=== PATIENT | female | born 1970 | race Caucasian/White ===

== ENCOUNTER → 2018-03-18 | Emergency (ER) | payer MEDICARE, MEDICAID ==
[~2018-03-18] VITALS: Ht 167.6 cm; Wt 104.0 kg
[~2018-03-18] MED LIST: CETI-102 PO; CHOL10002 PO; CYA500T PO; DESM0.1T PO; DICY10CA88 PO; FLUT16SP2 BOTHNARES; GABA-534 PO; HYDROmorphone 1 mg/ml syringe IV PRN; HYDROmorphone inj. 0.5 MG/0.5 ML DISP.SYRIN IV PRN; INSU100I25 SQ; LORA1TAB PO; LORazepam 2 mg/ml vial IV ONE; LURA80TA3 PO; MIRT15TA8 PO; OMEP20TA5 PO; OXYB5TAB11 PO; OXYC-134 PO; ROPI1TAB4 PO; VENL225T3 PO; diphenhydrAMINE 50 mg/ml inj IV ONE; fish oil PO; metoclopramide 5 mg/ml inj IV ONE; normal saline 1000ML IV soln IVB ONE; oxyCODONE/APAP 10/325mg tablet PO ONE
[2018-03-18 12:09] LABS: BASOPHILS % (AUTO) 0.3 % (0-1); EOSINOPHILS # (AUTO) 0.2 X10'3 (0-0.9); HEMATOCRIT 31.1 % (35.0-45.0); HEMOGLOBIN 10.2 g/dl (12.0-16.0); LYMPHOCYTES # (AUTO) 2.1 X10'3 (1.1-4.8); LYMPHOCYTES % (AUTO) 18.8 % (21-51); MEAN CORPUSCULAR HEMOGLOBIN 25.4 PG (27.0-31.0); MEAN CORPUSCULAR HGB CONC 32.8 % (33.0-36.5); MEAN CORPUSCULAR VOLUME 77.5 FL (78-98); MEAN PLATELET VOLUME 8.7 FL (7.4-10.4); MONOCYTES % (AUTO) 9.3 % (2-12); NEUTROPHILS # (AUTO) 7.8 X10'3 (1.8-7.7); NEUTROPHILS % (AUTO) 69.6 % (42-75); PLATELET COUNT 272 X10'3 (140-440); RED BLOOD COUNT 4.01 X10'6 (4.20-5.60); RED CELL DISTRIBUTION WIDTH 16.1 % (11.5-14.5); WHITE BLOOD COUNT 11.1 X10'3 (4.5-11.0)
[2018-03-18 12:23] LABS: ALANINE AMINOTRANSFERASE 30 U/L (12-78); ALBUMIN 3.2 G/DL (3.4-5.0); ALBUMIN/GLOBULIN RATIO 0.7 (1.1-1.5); ALKALINE PHOSPHATASE 92 IU/L (46-116); ANION GAP 7 (8-16); ASPARTATE AMINO TRANSFERASE 30 U/L (10-37); BILIRUBIN,TOTAL 0.3 MG/DL (0.1-1.0); BLOOD UREA NITROGEN 9 MG/DL (7-18); BUN/CREATININE RATIO 11.1 (6.6-38.0); CALCIUM 8.5 MG/DL (8.5-10.1); CHLORIDE 98 MMOL/L (99-107); CREATININE 0.81 MG/DL (0.40-0.90); GLUCOSE 156 MG/DL (70-104); LIPASE 143 U/L (73-393); POTASSIUM 4.1 MMOL/L (3.5-5.1); SODIUM 133 MMOL/L (135-145); TOTAL CARBON DIOXIDE 28.5 MMOL/L (24-32); TOTAL PROTEIN 7.7 G/DL (6.4-8.2); eGFR 76 ML/MIN
[2018-03-18 13:45] VITALS: BP 152/78
[2018-03-18 13:52] LABS: CLARITY,URINE CLOUDY (Clear); COLOR,URINE YELLOW (Yellow); GLUCOSE, URINE NEGATIVE (Neg); KETONES,URINE NEGATIVE (Neg); LEUKOCYTE ESTERASE ,URINE SMALL (Neg); NITRITES, URINE POSITIVE (Neg); OCCULT BLOOD,URINE NEGATIVE (Neg); PROTEIN,URINE NEGATIVE (Neg); UROBILINOGEN,URINE 0.2 E.U/dL (0.2-1.0)
[2018-03-18 13:57] LABS: UA COLLECTION TYPE STRAIGHT CATH
[2018-03-18 13:59] LABS: BACTERIA,URINE 4+ /HPF (Neg); MUCUS STRANDS FEW /LPF (Neg); RBC,URINE 0-2 /HPF (0-2); SQUAMOUS EPITHELIAL CELL,UR FEW /LPF (FEW); WBC,URINE 30-50 /HPF (0-4)
== END | disposition home or self-care (01) ==
LOC: ER 11:15
DX: R10.84 Generalized abdominal pain (principal); E11.9 Type 2 diabetes mellitus without complications; G89.29 Other chronic pain; Z79.899 Other long term (current) drug therapy; Z79.4 Long term (current) use of insulin; Z85.810 Personal history of malignant neoplasm of tongue
CPT/HCPCS: 36415; 74176; 80053; 81001; 83690; 85025; 87077; 87088; 87186; 96374; 96375; 99285; J1170; J1200; J2060; J2765; P9612

== ENCOUNTER 2018-05-02 14:27 | Inpatient (IN) | payer MEDICARE, MEDICAID ==
[~2018-05-02] VITALS: Ht 167.6 cm; Wt 95.4 kg
[~2018-05-02 14:27] MED LIST changes: -HYDROmorphone 1 mg/ml syringe IV PRN; -HYDROmorphone inj. 0.5 MG/0.5 ML DISP.SYRIN IV PRN; -LORazepam 2 mg/ml vial IV ONE; -diphenhydrAMINE 50 mg/ml inj IV ONE; -metoclopramide 5 mg/ml inj IV ONE; -normal saline 1000ML IV soln IVB ONE; -oxyCODONE/APAP 10/325mg tablet PO ONE
[2018-05-02] MEDS ORDERED: vancomycin/NS 1 GM ADD-VANTAGE 250 ML IV ONE (15:05)
[2018-05-02] MEDS ORDERED: piperacillin/tazo 3.375gm/50ml 50 ML IV ONE (15:05)
[2018-05-02 15:34] LABS: BASOPHILS % (AUTO) 0.3 % (0-1); EOSINOPHILS % (AUTO) 0.5 % (0-6); HEMATOCRIT 24.8 % (35.0-45.0); HEMOGLOBIN 8.2 g/dl (12.0-16.0); LYMPHOCYTES # (AUTO) 0.3 X10'3 (1.1-4.8); LYMPHOCYTES % (AUTO) 23.4 % (21-51); MEAN CORPUSCULAR HEMOGLOBIN 26.7 PG (27.0-31.0); MEAN CORPUSCULAR HGB CONC 33.1 % (33.0-36.5); MEAN CORPUSCULAR VOLUME 80.5 FL (78-98); MEAN PLATELET VOLUME 8.2 FL (7.4-10.4); MONOCYTES # (AUTO) 0.2 X10'3 (0-0.9); NEUTROPHILS # (AUTO) 0.8 X10'3 (1.8-7.7); NEUTROPHILS % (AUTO) 59.8 % (42-75); PLATELET COUNT 202 X10'3 (140-440); RED BLOOD COUNT 3.08 X10'6 (4.20-5.60); RED CELL DISTRIBUTION WIDTH 25.6 % (11.5-14.5); WHITE BLOOD COUNT 1.4 X10'3 (4.5-11.0)
[2018-05-02 15:47] LABS: INR 1.2 INR; PARTIAL THROMBOPLASTIN TIME 23 SECONDS (22-32); PROTHROMBIN TIME 12.3 SECONDS (9.0-12.0)
[2018-05-02 15:48] LABS: ALANINE AMINOTRANSFERASE 18 U/L (12-78); ALBUMIN 2.7 G/DL (3.4-5.0); ALBUMIN/GLOBULIN RATIO 0.5 (1.1-1.5); ALKALINE PHOSPHATASE 72 IU/L (46-116); ANION GAP 13 (8-16); ASPARTATE AMINO TRANSFERASE 18 U/L (10-37); BILIRUBIN,TOTAL 0.3 MG/DL (0.1-1.0); BLOOD UREA NITROGEN 15 MG/DL (7-18); CALCIUM 9.1 MG/DL (8.5-10.1); CHLORIDE 93 MMOL/L (99-107); CREATININE 1.15 MG/DL (0.40-0.90); GLUCOSE 129 MG/DL (70-104); MAGNESIUM 1.3 MG/DL (1.5-2.4); POTASSIUM 3.3 MMOL/L (3.5-5.1); SODIUM 131 MMOL/L (135-145); TOTAL CARBON DIOXIDE 25.3 MMOL/L (24-32); eGFR 51 ML/MIN
[2018-05-02 15:49] LABS: ANISOCYTOSIS 3+; PLATELET ESTIMATE NORMAL; TOTAL CELLS COUNTED 100
[2018-05-02 15:50] LABS: LARGE PLATELETS FEW; TOXIC GRANULATION 2+
[2018-05-02 15:52] LABS: MICROCYTOSIS 1+
[2018-05-02] MEDS ORDERED: iohexol 300mg/ml 100ml inj. ONE (15:53)
[2018-05-02] MEDS: TBO-filgrastim 480 MCG/0.8ml syringe SQ ONE ×2 (16:05→18:56)
[2018-05-02] MEDS ORDERED: ondansetron/PF 4mg/2ml inj IV PRN (16:45)
[2018-05-02] MEDS ORDERED: acetaminophen 325mg tablet PO PRN (16:45)
[2018-05-02] MEDS ORDERED: morphine 2 MG/ML inj. syringe IV PRN (16:45)
[2018-05-02] MEDS ORDERED: mag hydrox/Alum hydrox/simeth 30ml oral suspension PO PRN (16:45)
[2018-05-02] MEDS ORDERED: heparin sodium, porcine/PF 100unit/ml 5ML syringe IV ONE ×2 (17:05→18:20)
[2018-05-02] MEDS: vancomycin inj 1,250 MG in normal saline 250ml IV soln 250 ML IV SCH (18:00)
[2018-05-02] MEDS ORDERED: ondansetron/PF 4mg/2ml inj IV ONE (18:00)
[2018-05-02 18:42] LABS: CLARITY,URINE CLOUDY (Clear); COLOR,URINE STRAW (Yellow); GLUCOSE, URINE NEGATIVE (Neg); KETONES,URINE 15 mg/dl (Neg); LEUKOCYTE ESTERASE ,URINE NEGATIVE (Neg); NITRITES, URINE POSITIVE (Neg); OCCULT BLOOD,URINE NEGATIVE (Neg); PROTEIN,URINE NEGATIVE (Neg); UROBILINOGEN,URINE 0.2 E.U/dL (0.2-1.0)
[2018-05-02 18:47] LABS: UA COLLECTION TYPE CLN CATCH MIDSTREAM
[2018-05-02] MEDS: normal saline 1000ml 1,000 ML IV SCH (18:47)
[2018-05-02 18:48] LABS: SQUAMOUS EPITHELIAL CELL,UR MANY /LPF (FEW)
[2018-05-02 18:50] LABS: BACTERIA,URINE 4+ /HPF (Neg); MUCUS STRANDS NONE SEEN /LPF (Neg); RBC,URINE 0-2 /HPF (0-2)
[2018-05-02] MEDS: morphine 2 MG/ML inj. syringe IV PRN ×2 (18:53→22:46)
[2018-05-02 21:15] VITALS: BP 142/75
[2018-05-03] VITALS: BP 127/74
[2018-05-03] MEDS ORDERED: heparin sodium, porcine/PF 100unit/ml 5ML syringe IV SCH ×2
[2018-05-03] MEDS: normal saline 1000ml 1,000 ML IV SCH ×3 (03:39→15:07)
[2018-05-03] MEDS: vancomycin inj 1,250 MG in normal saline 250ml IV soln 250 ML IV SCH ×2 (05:31→18:01)
[2018-05-03 05:38] LABS: BASOPHILS % (AUTO) 0.4 % (0-1); EOSINOPHILS % (AUTO) 0.4 % (0-6); HEMOGLOBIN 7.7 g/dl (12.0-16.0); LYMPHOCYTES # (AUTO) 0.4 X10'3 (1.1-4.8); LYMPHOCYTES % (AUTO) 17.7 % (21-51); MEAN CORPUSCULAR HEMOGLOBIN 26.3 PG (27.0-31.0); MEAN CORPUSCULAR HGB CONC 32.1 % (33.0-36.5); MEAN CORPUSCULAR VOLUME 81.8 FL (78-98); MEAN PLATELET VOLUME 8.3 FL (7.4-10.4); MONOCYTES # (AUTO) 0.3 X10'3 (0-0.9); MONOCYTES % (AUTO) 16.3 % (2-12); NEUTROPHILS # (AUTO) 1.3 X10'3 (1.8-7.7); NEUTROPHILS % (AUTO) 65.2 % (42-75); PLATELET COUNT 191 X10'3 (140-440); RED BLOOD COUNT 2.94 X10'6 (4.20-5.60)
[2018-05-03 05:47] LABS: ALBUMIN 2.4 G/DL (3.4-5.0); ANION GAP 11 (8-16); BLOOD UREA NITROGEN 11 MG/DL (7-18); BUN/CREATININE RATIO 10.1 (6.6-38.0); CALCIUM 8.6 MG/DL (8.5-10.1); CHLORIDE 100 MMOL/L (99-107); CREATININE 1.09 MG/DL (0.40-0.90); GLUCOSE 112 MG/DL (70-104); POTASSIUM 3.4 MMOL/L (3.5-5.1); SODIUM 138 MMOL/L (135-145); TOTAL CARBON DIOXIDE 27.4 MMOL/L (24-32); eGFR 54 ML/MIN
[2018-05-03 06:51] LABS: ANISOCYTOSIS 3+; PLATELET ESTIMATE NORMAL; TOTAL CELLS COUNTED 100
[2018-05-03 06:52] LABS: TOXIC GRANULATION 3+
[2018-05-03 07:00] VITALS: BP 122/85
[2018-05-03] MEDS: morphine 2 MG/ML inj. syringe IV PRN ×3 (07:11→19:08)
[2018-05-03] MEDS: enoxaparin 40mg/0.4ml syringe SUBCUT SCH (07:11)
[2018-05-03] MEDS ORDERED: magnesium 2GM in 50ml NS 50 ML IV PRN (10:55)
[2018-05-03] MEDS ORDERED: magnesium 4gm in 100ml NS 100 ML IV PRN ×2 (10:55→16:00)
[2018-05-03] MEDS ORDERED: potassium Cl 20 mEq SR tablet PO PRN (10:55)
[2018-05-03] MEDS ORDERED: potassium Cl 40MEQ/NS 500ml 500 ML IV PRN ×2 (10:55)
[2018-05-03] MEDS: magnesium Cl slow-release 64mg tablet PO PRN (11:48)
[2018-05-03] MEDS: potassium Cl 20 mEq SR tablet PO PRN (11:48)
[2018-05-03 12:06] VITALS: BP_SYST 105; BP_SYST 149; BP_DIAS 55; BP_DIAS 56
[2018-05-03] MEDS ORDERED: PER5325T PO (14:05)
[2018-05-03] MEDS ORDERED: magnesium Cl slow-release 64mg tablet PO PRN (16:00)
[2018-05-03] MEDS ORDERED: magnesium 2 GM in 50ml IV PRN (16:05)
[2018-05-03 20:00] VITALS: BP 139/61
[2018-05-03] MEDS ORDERED: Dextrose 10%-water IV solution 1,000 ML IV PRN (20:00)
[2018-05-03 20:26] LABS: ALANINE AMINOTRANSFERASE 18 U/L (12-78); ALBUMIN 2.2 G/DL (3.4-5.0); ALBUMIN/GLOBULIN RATIO 0.5 (1.1-1.5); ALKALINE PHOSPHATASE 60 IU/L (46-116); ANION GAP 9 (8-16); ASPARTATE AMINO TRANSFERASE 15 U/L (10-37); BILIRUBIN,TOTAL 0.3 MG/DL (0.1-1.0); BLOOD UREA NITROGEN 12 MG/DL (7-18); BUN/CREATININE RATIO 12.9 (6.6-38.0); CALCIUM 8.3 MG/DL (8.5-10.1); CHLORIDE 105 MMOL/L (99-107); CREATININE 0.93 MG/DL (0.40-0.90); GLUCOSE 90 MG/DL (70-104); MAGNESIUM 1.5 MG/DL (1.5-2.4); PHOSPHORUS 2.5 MG/DL (2.3-4.5); POTASSIUM 3.6 MMOL/L (3.5-5.1); PREALBUMIN 10.7 MG/DL (19-36); SODIUM 140 MMOL/L (135-145); TOTAL CARBON DIOXIDE 26.1 MMOL/L (24-32); TOTAL PROTEIN 6.6 G/DL (6.4-8.2); TRIGLYCERIDES 128 MG/DL (20-135); eGFR 65 ML/MIN
[2018-05-03] MEDS: oxybutynin 5mg tablet PO SCH (20:46)
[2018-05-03] MEDS: mirtazapine 15mg tablet PO SCH (20:46)
[2018-05-03] MEDS: LORazepam 1 MG tablet PO SCH (20:46)
[2018-05-03] MEDS: fat emulsion IV 100 ML, MVI, adult No.4 with vit. K 10 ML, Trace element-5 inj. 1 ML in... IV SCH ×4 (20:46)
[2018-05-03] MEDS: nystatin 500,000 unit/5ML UD oral suspension PO SCH (20:46)
[2018-05-03] MEDS: lurasidone 20mg tablet PO SCH (20:47)
[2018-05-03] MEDS: ROPINIRole 1mg tablet PO SCH (21:00)
[2018-05-04] VITALS: BP 130/65
[2018-05-04] MEDS: morphine 2 MG/ML inj. syringe IV PRN ×5 (00:02→20:47)
[2018-05-04] MEDS: vancomycin inj 1,250 MG in normal saline 250ml IV soln 250 ML IV SCH ×2 (05:14→21:58)
[2018-05-04 05:22] LABS: BASOPHILS % (AUTO) 0.3 % (0-1); EOSINOPHILS % (AUTO) 0.4 % (0-6); HEMATOCRIT 22.3 % (35.0-45.0); HEMOGLOBIN 7.3 g/dl (12.0-16.0); LYMPHOCYTES # (AUTO) 0.4 X10'3 (1.1-4.8); LYMPHOCYTES % (AUTO) 13.6 % (21-51); MEAN CORPUSCULAR HEMOGLOBIN 26.8 PG (27.0-31.0); MEAN CORPUSCULAR HGB CONC 32.8 % (33.0-36.5); MEAN CORPUSCULAR VOLUME 81.7 FL (78-98); MEAN PLATELET VOLUME 8.1 FL (7.4-10.4); MONOCYTES # (AUTO) 0.3 X10'3 (0-0.9); MONOCYTES % (AUTO) 9.7 % (2-12); PLATELET COUNT 206 X10'3 (140-440); RED BLOOD COUNT 2.73 X10'6 (4.20-5.60); RED CELL DISTRIBUTION WIDTH 26.1 % (11.5-14.5); WHITE BLOOD COUNT 2.6 X10'3 (4.5-11.0)
[2018-05-04] MEDS ORDERED: VANCOMYCIN LEVEL IV ONE (05:30)
[2018-05-04 05:33] LABS: ALANINE AMINOTRANSFERASE 15 U/L (12-78); ALBUMIN 2.2 G/DL (3.4-5.0); ALBUMIN/GLOBULIN RATIO 0.5 (1.1-1.5); ALKALINE PHOSPHATASE 58 IU/L (46-116); ANION GAP 10 (8-16); ASPARTATE AMINO TRANSFERASE 15 U/L (10-37); BILIRUBIN,TOTAL 0.2 MG/DL (0.1-1.0); BLOOD UREA NITROGEN 10 MG/DL (7-18); BUN/CREATININE RATIO 10.9 (6.6-38.0); CALCIUM 8.4 MG/DL (8.5-10.1); CHLORIDE 104 MMOL/L (99-107); CREATININE 0.92 MG/DL (0.40-0.90); GLUCOSE 133 MG/DL (70-104); POTASSIUM 3.6 MMOL/L (3.5-5.1); SODIUM 139 MMOL/L (135-145); TOTAL CARBON DIOXIDE 25.3 MMOL/L (24-32); TOTAL PROTEIN 6.7 G/DL (6.4-8.2); eGFR 66 ML/MIN
[2018-05-04 05:34] LABS: MAGNESIUM 1.4 MG/DL (1.5-2.4); PHOSPHORUS 2.6 MG/DL (2.3-4.5); VANCOMYCIN,TROUGH 19.9 UG/ML (6.0-14.0)
[2018-05-04 06:08] LABS: NUCLEATED RED BLOOD CELLS 1 /100WBC (0-0); TOTAL CELLS COUNTED 100
[2018-05-04 06:10] LABS: ANISOCYTOSIS 3+; HYPOCHROMASIA 1+; PLATELET ESTIMATE NORMAL
[2018-05-04 06:11] LABS: TOXIC GRANULATION 3+
[2018-05-04 07:36] VITALS: BP 129/80
[2018-05-04] MEDS ORDERED: Insulin Detemir pen SQ SCH (08:00)
[2018-05-04] MEDS ORDERED: insulin glargine (Lantus) pen - multi-dose SQ SCH (08:00)
[2018-05-04] MEDS: normal saline 1000ml 1,000 ML IV SCH ×2 (08:43→17:31)
[2018-05-04] MEDS: LORazepam 1 MG tablet PO SCH ×3 (08:59→21:59)
[2018-05-04] MEDS: oxybutynin 5mg tablet PO SCH ×2 (08:59→20:46)
[2018-05-04] MEDS: venlafaxine XR 75mg capsule (Q24H) PO SCH (08:59)
[2018-05-04] MEDS: nystatin 500,000 unit/5ML UD oral suspension PO SCH ×3 (09:00→21:59)
[2018-05-04] MEDS: cetirizine 10mg tablet PO SCH (09:00)
[2018-05-04] MEDS: enoxaparin 40mg/0.4ml syringe SUBCUT SCH (09:01)
[2018-05-04] MEDS: pantoprazole 40mg Tablet.DR PO SCH (09:01)
[2018-05-04] MEDS: fluticasone nasal spray 16GM bottle NS SCH (09:02)
[2018-05-04] MEDS: magnesium Cl slow-release 64mg tablet PO PRN (09:22)
[2018-05-04] MEDS ORDERED: magnesium hydroxide 30ml (MOM) UD suspension PO PRN (10:50)
[2018-05-04 12:10] VITALS: BP 149/45
[2018-05-04 15:52] VITALS: BP 142/88
[2018-05-04 20:00] VITALS: BP 157/94
[2018-05-04] MEDS: insulin glargine (Lantus) pen - multi-dose SQ SCH (20:46)
[2018-05-04] MEDS: lurasidone 20mg tablet PO SCH (21:59)
[2018-05-04] MEDS: ROPINIRole 1mg tablet PO SCH (21:59)
[2018-05-04] MEDS: mirtazapine 15mg tablet PO SCH (22:01)
[2018-05-04 23:30] VITALS: BP 147/83
[2018-05-05] MEDS: fat emulsion IV 100 ML, MVI, adult No.4 with vit. K 10 ML, Trace element-5 inj. 1 ML in... IV SCH ×4 (02:31)
[2018-05-05] MEDS: morphine 2 MG/ML inj. syringe IV PRN ×2 (02:34→11:42)
[2018-05-05] MEDS: normal saline 1000ml 1,000 ML IV SCH (04:43)
[2018-05-05 05:28] LABS: BASOPHILS % (AUTO) 0.5 % (0-1); EOSINOPHILS % (AUTO) 0.3 % (0-6); HEMATOCRIT 22.5 % (35.0-45.0); HEMOGLOBIN 7.4 g/dl (12.0-16.0); LYMPHOCYTES # (AUTO) 0.3 X10'3 (1.1-4.8); MEAN CORPUSCULAR HEMOGLOBIN 26.7 PG (27.0-31.0); MEAN CORPUSCULAR HGB CONC 32.7 % (33.0-36.5); MEAN CORPUSCULAR VOLUME 81.7 FL (78-98); MEAN PLATELET VOLUME 8.2 FL (7.4-10.4); MONOCYTES # (AUTO) 0.2 X10'3 (0-0.9); MONOCYTES % (AUTO) 10.8 % (2-12); NEUTROPHILS # (AUTO) 1.4 X10'3 (1.8-7.7); NEUTROPHILS % (AUTO) 71.4 % (42-75); PLATELET COUNT 229 X10'3 (140-440); RED BLOOD COUNT 2.75 X10'6 (4.20-5.60); RED CELL DISTRIBUTION WIDTH 25.7 % (11.5-14.5)
[2018-05-05 05:55] LABS: ALANINE AMINOTRANSFERASE 13 U/L (12-78); ALBUMIN 2.2 G/DL (3.4-5.0); ALBUMIN/GLOBULIN RATIO 0.5 (1.1-1.5); ALKALINE PHOSPHATASE 57 IU/L (46-116); ANION GAP 10 (8-16); ASPARTATE AMINO TRANSFERASE 15 U/L (10-37); BILIRUBIN,TOTAL 0.1 MG/DL (0.1-1.0); BLOOD UREA NITROGEN 12 MG/DL (7-18); CALCIUM 8.5 MG/DL (8.5-10.1); CHLORIDE 102 MMOL/L (99-107); CREATININE 0.92 MG/DL (0.40-0.90); GLUCOSE 144 MG/DL (70-104); MAGNESIUM 1.3 MG/DL (1.5-2.4); PHOSPHORUS 3.3 MG/DL (2.3-4.5); POTASSIUM 3.3 MMOL/L (3.5-5.1); PREALBUMIN 11.8 MG/DL (19-36); SODIUM 139 MMOL/L (135-145); TOTAL CARBON DIOXIDE 27.5 MMOL/L (24-32); TOTAL PROTEIN 6.8 G/DL (6.4-8.2); TRIGLYCERIDES 227 MG/DL (20-135); eGFR 66 ML/MIN
[2018-05-05] MEDS: vancomycin inj 1,250 MG in normal saline 250ml IV soln 250 ML IV SCH (06:02)
[2018-05-05 07:43] LABS: TOTAL CELLS COUNTED 100
[2018-05-05 07:44] LABS: ANISOCYTOSIS 3+; HYPOCHROMASIA 1+; PLATELET ESTIMATE NORMAL; TOXIC GRANULATION 3+
[2018-05-05 08:06] VITALS: BP 140/73
[2018-05-05] MEDS: pantoprazole 40mg Tablet.DR PO SCH (08:53)
[2018-05-05] MEDS: LORazepam 1 MG tablet PO SCH ×3 (08:54→20:51)
[2018-05-05] MEDS: fluticasone nasal spray 16GM bottle NS SCH (08:54)
[2018-05-05] MEDS: oxybutynin 5mg tablet PO SCH ×2 (08:55→20:52)
[2018-05-05] MEDS: venlafaxine XR 75mg capsule (Q24H) PO SCH (08:55)
[2018-05-05] MEDS: cetirizine 10mg tablet PO SCH (08:56)
[2018-05-05] MEDS: nystatin 500,000 unit/5ML UD oral suspension PO SCH ×3 (08:56→20:52)
[2018-05-05] MEDS: enoxaparin 40mg/0.4ml syringe SUBCUT SCH (08:57)
[2018-05-05] MEDS: potassium Cl 20 mEq SR tablet PO PRN ×3 (08:58→20:52)
[2018-05-05] MEDS: magnesium Cl slow-release 64mg tablet PO PRN ×2 (08:59→20:53)
[2018-05-05 11:00] VITALS: BP 143/83
[2018-05-05 13:40] VITALS: BP 142/85
[2018-05-05 15:57] VITALS: BP 154/87
[2018-05-05 18:00] VITALS: BP 122/40
[2018-05-05] MEDS: lurasidone 20mg tablet PO SCH (20:52)
[2018-05-05] MEDS: ROPINIRole 1mg tablet PO SCH (20:52)
[2018-05-05] MEDS: mirtazapine 15mg tablet PO SCH (20:52)
[2018-05-05] MEDS: insulin glargine (Lantus) pen - multi-dose SQ SCH (21:56)
[2018-05-05] MEDS: oxyCODONE/APAP 5-325mg tablet PO PRN (22:00)
[2018-05-06] VITALS: BP 129/78
[2018-05-06] MEDS: fat emulsion IV 100 ML, MVI, adult No.4 with vit. K 10 ML, Trace element-5 inj. 1 ML in... IV SCH ×8 (00:59→19:32)
[2018-05-06 06:11] LABS: BASOPHILS % (AUTO) 0.2 % (0-1); EOSINOPHILS % (AUTO) 1.2 % (0-6); HEMOGLOBIN 7.5 g/dl (12.0-16.0); LYMPHOCYTES # (AUTO) 0.4 X10'3 (1.1-4.8); LYMPHOCYTES % (AUTO) 20.7 % (21-51); MEAN CORPUSCULAR HEMOGLOBIN 26.6 PG (27.0-31.0); MEAN CORPUSCULAR HGB CONC 32.5 % (33.0-36.5); MEAN CORPUSCULAR VOLUME 81.8 FL (78-98); MEAN PLATELET VOLUME 8.2 FL (7.4-10.4); MONOCYTES # (AUTO) 0.3 X10'3 (0-0.9); MONOCYTES % (AUTO) 16.3 % (2-12); NEUTROPHILS # (AUTO) 1.2 X10'3 (1.8-7.7); NEUTROPHILS % (AUTO) 61.6 % (42-75); PLATELET COUNT 218 X10'3 (140-440); RED BLOOD COUNT 2.82 X10'6 (4.20-5.60); RED CELL DISTRIBUTION WIDTH 27.8 % (11.5-14.5)
[2018-05-06 06:13] LABS: ALBUMIN 2.4 G/DL (3.4-5.0); ANION GAP 7 (8-16); BLOOD UREA NITROGEN 15 MG/DL (7-18); BUN/CREATININE RATIO 16.5 (6.6-38.0); CHLORIDE 102 MMOL/L (99-107); CREATININE 0.91 MG/DL (0.40-0.90); GLUCOSE 128 MG/DL (70-104); MAGNESIUM 1.5 MG/DL (1.5-2.4); POTASSIUM 3.8 MMOL/L (3.5-5.1); SODIUM 137 MMOL/L (135-145); TOTAL CARBON DIOXIDE 28.4 MMOL/L (24-32); eGFR 67 ML/MIN
[2018-05-06 07:00] VITALS: BP 151/79
[2018-05-06 07:53] LABS: HYPOCHROMASIA 1+; PLATELET ESTIMATE NORMAL; POLYCHROMASIA 1+; TOTAL CELLS COUNTED 100; TOXIC GRANULATION 3+
[2018-05-06 07:54] LABS: ANISOCYTOSIS 3+
[2018-05-06] MEDS: LORazepam 1 MG tablet PO SCH ×3 (08:18→21:32)
[2018-05-06] MEDS: oxybutynin 5mg tablet PO SCH ×2 (08:18→19:31)
[2018-05-06] MEDS: cetirizine 10mg tablet PO SCH (08:18)
[2018-05-06] MEDS: pantoprazole 40mg Tablet.DR PO SCH (08:18)
[2018-05-06] MEDS: nystatin 500,000 unit/5ML UD oral suspension PO SCH ×3 (08:19→21:32)
[2018-05-06] MEDS: venlafaxine XR 75mg capsule (Q24H) PO SCH (08:19)
[2018-05-06] MEDS: enoxaparin 40mg/0.4ml syringe SUBCUT SCH (08:19)
[2018-05-06] MEDS: levoFLOXACIN-Levaquin 500mg/D5 100 ML IV SCH (08:20)
[2018-05-06] MEDS: fluticasone nasal spray 16GM bottle NS SCH (08:20)
[2018-05-06] MEDS: oxyCODONE/APAP 5-325mg tablet PO PRN ×2 (08:23→19:32)
[2018-05-06] MEDS: magnesium hydroxide 30ml (MOM) UD suspension PO PRN (08:24)
[2018-05-06] MEDS: insulin glargine (Lantus) pen - multi-dose SQ SCH (08:52)
[2018-05-06 18:00] VITALS: BP 153/108
[2018-05-06] MEDS: mirtazapine 15mg tablet PO SCH (21:32)
[2018-05-06] MEDS: ROPINIRole 1mg tablet PO SCH (21:32)
[2018-05-06] MEDS: lurasidone 20mg tablet PO SCH (21:32)
[2018-05-06 23:30] VITALS: BP 133/82
[2018-05-07 05:07] LABS: BASOPHILS % (AUTO) 0.3 % (0-1); EOSINOPHILS % (AUTO) 0.2 % (0-6); HEMATOCRIT 25.6 % (35.0-45.0); HEMOGLOBIN 8.3 g/dl (12.0-16.0); LYMPHOCYTES # (AUTO) 0.4 X10'3 (1.1-4.8); LYMPHOCYTES % (AUTO) 20.3 % (21-51); MEAN CORPUSCULAR HEMOGLOBIN 26.4 PG (27.0-31.0); MEAN CORPUSCULAR HGB CONC 32.4 % (33.0-36.5); MEAN CORPUSCULAR VOLUME 81.6 FL (78-98); MONOCYTES # (AUTO) 0.4 X10'3 (0-0.9); MONOCYTES % (AUTO) 16.9 % (2-12); NEUTROPHILS # (AUTO) 1.3 X10'3 (1.8-7.7); NEUTROPHILS % (AUTO) 62.3 % (42-75); PLATELET COUNT 229 X10'3 (140-440); RED BLOOD COUNT 3.14 X10'6 (4.20-5.60); RED CELL DISTRIBUTION WIDTH 27.7 % (11.5-14.5); WHITE BLOOD COUNT 2.1 X10'3 (4.5-11.0)
[2018-05-07 05:35] LABS: ALBUMIN 2.6 G/DL (3.4-5.0); ANION GAP 8 (8-16); BLOOD UREA NITROGEN 16 MG/DL (7-18); BUN/CREATININE RATIO 16.2 (6.6-38.0); CALCIUM 9.2 MG/DL (8.5-10.1); CHLORIDE 101 MMOL/L (99-107); CREATININE 0.99 MG/DL (0.40-0.90); GLUCOSE 134 MG/DL (70-104); MAGNESIUM 1.6 MG/DL (1.5-2.4); POTASSIUM 3.8 MMOL/L (3.5-5.1); SODIUM 139 MMOL/L (135-145); TOTAL CARBON DIOXIDE 29.6 MMOL/L (24-32); eGFR 60 ML/MIN
[2018-05-07 06:24] LABS: NUCLEATED RED BLOOD CELLS 2 /100WBC (0-0); PLATELET ESTIMATE NORMAL; TOTAL CELLS COUNTED 100
[2018-05-07 06:25] LABS: HYPOCHROMASIA 1+; POLYCHROMASIA 1+; TOXIC GRANULATION 3+
[2018-05-07 06:26] LABS: ANISOCYTOSIS 3+; SCHISTOCYTES FEW; TEAR DROP CELLS FEW
[2018-05-07 07:01] VITALS: BP 157/97
[2018-05-07] MEDS: venlafaxine XR 75mg capsule (Q24H) PO SCH (07:40)
[2018-05-07] MEDS: nystatin 500,000 unit/5ML UD oral suspension PO SCH ×3 (07:40→20:56)
[2018-05-07] MEDS: levoFLOXACIN-Levaquin 500mg/D5 100 ML IV SCH (07:40)
[2018-05-07] MEDS: LORazepam 1 MG tablet PO SCH ×3 (07:40→20:54)
[2018-05-07] MEDS: oxybutynin 5mg tablet PO SCH ×2 (07:41→20:03)
[2018-05-07] MEDS: cetirizine 10mg tablet PO SCH (07:41)
[2018-05-07] MEDS: oxyCODONE/APAP 5-325mg tablet PO PRN ×2 (07:41→16:55)
[2018-05-07] MEDS: pantoprazole 40mg Tablet.DR PO SCH (07:41)
[2018-05-07] MEDS: enoxaparin 40mg/0.4ml syringe SUBCUT SCH (07:42)
[2018-05-07] MEDS: fluticasone nasal spray 16GM bottle NS SCH (07:53)
[2018-05-07] MEDS: insulin glargine (Lantus) pen - multi-dose SQ SCH (07:57)
[2018-05-07 11:05] VITALS: BP 159/84
[2018-05-07] MEDS: magnesium hydroxide 30ml (MOM) UD suspension PO PRN (13:40)
[2018-05-07] MEDS ORDERED: filgrastim 300mcg inj SQ ONE (14:45)
[2018-05-07] MEDS: fat emulsion IV 100 ML, MVI, adult No.4 with vit. K 10 ML, Trace element-5 inj. 1 ML in... IV SCH ×4 (16:35)
[2018-05-07 19:00] VITALS: BP 153/79
[2018-05-07] MEDS: lurasidone 20mg tablet PO SCH (20:55)
[2018-05-07] MEDS: ROPINIRole 1mg tablet PO SCH (20:56)
[2018-05-07] MEDS: mirtazapine 15mg tablet PO SCH (20:56)
[2018-05-08] VITALS: BP 150/76
[2018-05-08 06:37] LABS: MAGNESIUM 1.8 MG/DL (1.5-2.4); POTASSIUM 4.4 MMOL/L (3.5-5.1)
[2018-05-08 07:00] VITALS: BP 141/89
[2018-05-08] MEDS: oxyCODONE/APAP 5-325mg tablet PO PRN ×2 (08:21→19:49)
[2018-05-08] MEDS: cetirizine 10mg tablet PO SCH (08:21)
[2018-05-08] MEDS: oxybutynin 5mg tablet PO SCH ×2 (08:21→19:49)
[2018-05-08] MEDS: pantoprazole 40mg Tablet.DR PO SCH (08:21)
[2018-05-08] MEDS: venlafaxine XR 75mg capsule (Q24H) PO SCH (08:21)
[2018-05-08] MEDS: LORazepam 1 MG tablet PO SCH ×3 (08:21→20:32)
[2018-05-08] MEDS: fluticasone nasal spray 16GM bottle NS SCH (08:23)
[2018-05-08] MEDS: enoxaparin 40mg/0.4ml syringe SUBCUT SCH (08:23)
[2018-05-08] MEDS: levoFLOXACIN-Levaquin 500mg/D5 100 ML IV SCH (08:24)
[2018-05-08] MEDS: insulin glargine (Lantus) pen - multi-dose SQ SCH (08:42)
[2018-05-08] MEDS: nystatin 500,000 unit/5ML UD oral suspension PO SCH ×3 (08:45→20:31)
[2018-05-08 11:00] VITALS: BP 141/84
[2018-05-08 12:19] LABS: BASOPHILS % (AUTO) 0.1 % (0-1); EOSINOPHILS # (AUTO) 0.1 X10'3 (0-0.9); HEMATOCRIT 27.6 % (35.0-45.0); HEMOGLOBIN 8.8 g/dl (12.0-16.0); LYMPHOCYTES # (AUTO) 0.7 X10'3 (1.1-4.8); LYMPHOCYTES % (AUTO) 7.8 % (21-51); MEAN CORPUSCULAR HEMOGLOBIN 26.5 PG (27.0-31.0); MEAN CORPUSCULAR HGB CONC 31.9 % (33.0-36.5); MEAN CORPUSCULAR VOLUME 83.1 FL (78-98); MEAN PLATELET VOLUME 8.1 FL (7.4-10.4); MONOCYTES # (AUTO) 0.7 X10'3 (0-0.9); MONOCYTES % (AUTO) 7.7 % (2-12); NEUTROPHILS # (AUTO) 7.4 X10'3 (1.8-7.7); NEUTROPHILS % (AUTO) 83.4 % (42-75); PLATELET COUNT 233 X10'3 (140-440); RED BLOOD COUNT 3.32 X10'6 (4.20-5.60); RED CELL DISTRIBUTION WIDTH 28.1 % (11.5-14.5); WHITE BLOOD COUNT 8.9 X10'3 (4.5-11.0)
[2018-05-08 12:34] LABS: ANISOCYTOSIS 3+; HYPOCHROMASIA 1+; NUCLEATED RED BLOOD CELLS 1 /100WBC (0-0); PLATELET ESTIMATE NORMAL; POLYCHROMASIA 1+; SCHISTOCYTES FEW; TEAR DROP CELLS FEW; TOTAL CELLS COUNTED 100
[2018-05-08 12:35] LABS: TOXIC GRANULATION 2+
[2018-05-08] MEDS: fat emulsion IV 100 ML, MVI, adult No.4 with vit. K 10 ML, Trace element-5 inj. 1 ML in... IV SCH ×4 (13:54)
[2018-05-08 18:00] VITALS: BP 146/76
[2018-05-08] MEDS: mirtazapine 15mg tablet PO SCH (20:31)
[2018-05-08] MEDS: lurasidone 20mg tablet PO SCH (20:31)
[2018-05-08] MEDS: ROPINIRole 1mg tablet PO SCH (20:31)
[2018-05-09] VITALS: BP 139/60
[2018-05-09 02:13] LABS: BASOPHILS % (AUTO) 0 % (0-1); EOSINOPHILS % (AUTO) 0 % (0-6); HEMOGLOBIN 8.1 g/dl (12.0-16.0); LYMPHOCYTES # (AUTO) 0.7 X10'3 (1.1-4.8); LYMPHOCYTES % (AUTO) 9.6 % (21-51); MEAN CORPUSCULAR HGB CONC 32.4 % (33.0-36.5); MEAN CORPUSCULAR VOLUME 83.2 FL (78-98); MEAN PLATELET VOLUME 7.9 FL (7.4-10.4); MONOCYTES # (AUTO) 0.6 X10'3 (0-0.9); MONOCYTES % (AUTO) 8.5 % (2-12); NEUTROPHILS % (AUTO) 81.9 % (42-75); PLATELET COUNT 215 X10'3 (140-440); RED BLOOD COUNT 3.01 X10'6 (4.20-5.60); RED CELL DISTRIBUTION WIDTH 28.1 % (11.5-14.5); WHITE BLOOD COUNT 7.4 X10'3 (4.5-11.0)
[2018-05-09] MEDS: oxyCODONE/APAP 5-325mg tablet PO PRN ×2 (02:13→20:37)
[2018-05-09 02:22] LABS: HEMOGLOBIN A1C 7.7 % (4.5-6.2)
[2018-05-09 02:26] LABS: ALANINE AMINOTRANSFERASE 17 U/L (12-78); ALBUMIN 2.7 G/DL (3.4-5.0); ALBUMIN/GLOBULIN RATIO 0.6 (1.1-1.5); ALKALINE PHOSPHATASE 80 IU/L (46-116); ANION GAP 9 (8-16); ASPARTATE AMINO TRANSFERASE 21 U/L (10-37); BILIRUBIN,TOTAL 0.1 MG/DL (0.1-1.0); BLOOD UREA NITROGEN 25 MG/DL (7-18); BUN/CREATININE RATIO 22.7 (6.6-38.0); CHLORIDE 100 MMOL/L (99-107); GLUCOSE 177 MG/DL (70-104); MAGNESIUM 1.9 MG/DL (1.5-2.4); PHOSPHORUS 3.7 MG/DL (2.3-4.5); POTASSIUM 4.1 MMOL/L (3.5-5.1); PREALBUMIN 18.9 MG/DL (19-36); SODIUM 136 MMOL/L (135-145); TOTAL CARBON DIOXIDE 27.3 MMOL/L (24-32); TOTAL PROTEIN 7.4 G/DL (6.4-8.2); TRIGLYCERIDES 299 MG/DL (20-135); eGFR 53 ML/MIN
[2018-05-09] MEDS: levoFLOXACIN-Levaquin 500mg/D5 100 ML IV SCH (07:55)
[2018-05-09] MEDS: enoxaparin 40mg/0.4ml syringe SUBCUT SCH (07:55)
[2018-05-09] MEDS: pantoprazole 40mg Tablet.DR PO SCH (07:56)
[2018-05-09] MEDS: venlafaxine XR 75mg capsule (Q24H) PO SCH (07:56)
[2018-05-09] MEDS: oxybutynin 5mg tablet PO SCH ×2 (07:56→20:35)
[2018-05-09] MEDS: LORazepam 1 MG tablet PO SCH ×3 (07:56→20:35)
[2018-05-09] MEDS: cetirizine 10mg tablet PO SCH (07:57)
[2018-05-09] MEDS: nystatin 500,000 unit/5ML UD oral suspension PO SCH ×3 (07:57→20:35)
[2018-05-09] MEDS: fluticasone nasal spray 16GM bottle NS SCH ×2 (08:00→11:25)
[2018-05-09 08:10] VITALS: BP 129/81
[2018-05-09] MEDS: insulin glargine (Lantus) pen - multi-dose SQ SCH (11:25)
[2018-05-09] MEDS: [UNRECOGNIZED DRUG - REMARK] IV SCH ×8 (11:42→16:30)
[2018-05-09 11:44] VITALS: BP 134/84
[2018-05-09] MEDS ORDERED: Dextrose 10%-water IV solution 1,000 ML IV PRN (12:45)
[2018-05-09] MEDS: ceFAZolin 1GM/D5W- ADD-VANTAGE 50 ML IV SCH (16:19)
[2018-05-09 19:15] VITALS: BP 144/90
[2018-05-09] MEDS: ROPINIRole 1mg tablet PO SCH (20:36)
[2018-05-09] MEDS: mirtazapine 15mg tablet PO SCH (20:36)
[2018-05-09] MEDS: lurasidone 20mg tablet PO SCH (20:36)
[2018-05-10] VITALS: BP 127/89
[2018-05-10] MEDS: ceFAZolin 1GM/D5W- ADD-VANTAGE 50 ML IV SCH ×4 (00:22→23:42)
[2018-05-10] MEDS: oxyCODONE/APAP 5-325mg tablet PO PRN ×3 (00:31→23:43)
[2018-05-10 07:10] VITALS: BP 158/83
[2018-05-10] MEDS: enoxaparin 40mg/0.4ml syringe SUBCUT SCH (07:14)
[2018-05-10] MEDS: cetirizine 10mg tablet PO SCH (07:14)
[2018-05-10] MEDS: LORazepam 1 MG tablet PO SCH ×3 (07:14→21:34)
[2018-05-10] MEDS: venlafaxine XR 75mg capsule (Q24H) PO SCH (07:14)
[2018-05-10] MEDS: oxybutynin 5mg tablet PO SCH ×2 (07:15→19:28)
[2018-05-10] MEDS: pantoprazole 40mg Tablet.DR PO SCH (07:15)
[2018-05-10] MEDS: nystatin 500,000 unit/5ML UD oral suspension PO SCH ×3 (07:29→21:35)
[2018-05-10] MEDS: [UNRECOGNIZED DRUG - REMARK] IV SCH ×8 (08:19→12:30)
[2018-05-10] MEDS: insulin glargine (Lantus) pen - multi-dose SQ SCH (08:34)
[2018-05-10 11:00] VITALS: BP 148/79
[2018-05-10 20:00] VITALS: BP 159/93
[2018-05-10] MEDS: lurasidone 20mg tablet PO SCH (21:34)
[2018-05-10] MEDS: mirtazapine 15mg tablet PO SCH (21:34)
[2018-05-10] MEDS: ROPINIRole 1mg tablet PO SCH (21:34)
[2018-05-10 23:00] VITALS: BP 125/71
[2018-05-11] MEDS: [UNRECOGNIZED DRUG - REMARK] IV SCH ×8 (04:56→09:46)
[2018-05-11] MEDS: pantoprazole 40mg Tablet.DR PO SCH (07:37)
[2018-05-11] MEDS: cetirizine 10mg tablet PO SCH (07:38)
[2018-05-11] MEDS: LORazepam 1 MG tablet PO SCH ×3 (07:38→20:57)
[2018-05-11] MEDS: venlafaxine XR 75mg capsule (Q24H) PO SCH (07:38)
[2018-05-11] MEDS: oxybutynin 5mg tablet PO SCH ×2 (07:38→20:57)
[2018-05-11] MEDS: nystatin 500,000 unit/5ML UD oral suspension PO SCH ×3 (07:39→20:57)
[2018-05-11] MEDS: enoxaparin 40mg/0.4ml syringe SUBCUT SCH (07:40)
[2018-05-11] MEDS: fluticasone nasal spray 16GM bottle NS SCH (07:41)
[2018-05-11] MEDS: ceFAZolin 1GM/D5W- ADD-VANTAGE 50 ML IV SCH ×3 (07:41→23:56)
[2018-05-11] MEDS: insulin glargine (Lantus) pen - multi-dose SQ SCH ×2 (07:59→21:00)
[2018-05-11 08:41] VITALS: BP 140/98
[2018-05-11 13:51] VITALS: BP 147/92
[2018-05-11 13:54] VITALS: BP 140/87
[2018-05-11 16:21] VITALS: BP 169/99
[2018-05-11] MEDS ORDERED: dextrose 50%-water 50ml dispensing syringe IV PRN ×2 (17:00)
[2018-05-11] MEDS ORDERED: insulin Lispro (HumaLOG) vial - multi-dose SQ SCH (17:00)
[2018-05-11] MEDS ORDERED: MESSAGE TO PHARMACY PO ONE (17:00)
[2018-05-11] MEDS ORDERED: dextrose ORAL solution 15 GM/59 ML bottle PO PRN ×2 (17:00)
[2018-05-11] MEDS ORDERED: glucagon, human recombinant 1mg kit SUBCUT PRN (17:00)
[2018-05-11 20:00] VITALS: BP 160/84
[2018-05-11] MEDS: insulin regular, human vial - multi-dose SQ SCH (20:26)
[2018-05-11] MEDS: lurasidone 20mg tablet PO SCH (20:56)
[2018-05-11] MEDS: ROPINIRole 1mg tablet PO SCH (20:56)
[2018-05-11] MEDS: mirtazapine 15mg tablet PO SCH (20:57)
[2018-05-12] VITALS: BP 139/67
[2018-05-12] MEDS: [UNRECOGNIZED DRUG - REMARK] IV SCH ×8 (01:33→05:38)
[2018-05-12] MEDS: insulin regular, human vial - multi-dose SQ SCH ×4 (03:00→20:52)
[2018-05-12 06:23] LABS: BASOPHILS % (AUTO) 0.1 % (0-1); EOSINOPHILS % (AUTO) 0.1 % (0-6); HEMATOCRIT 26.7 % (35.0-45.0); HEMOGLOBIN 8.6 g/dl (12.0-16.0); LYMPHOCYTES % (AUTO) 24.2 % (21-51); MEAN CORPUSCULAR HEMOGLOBIN 27.1 PG (27.0-31.0); MEAN CORPUSCULAR HGB CONC 32.3 % (33.0-36.5); MEAN CORPUSCULAR VOLUME 83.9 FL (78-98); MEAN PLATELET VOLUME 8.6 FL (7.4-10.4); MONOCYTES # (AUTO) 0.7 X10'3 (0-0.9); MONOCYTES % (AUTO) 17.5 % (2-12); NEUTROPHILS # (AUTO) 2.3 X10'3 (1.8-7.7); NEUTROPHILS % (AUTO) 58.1 % (42-75); PLATELET COUNT 240 X10'3 (140-440); RED BLOOD COUNT 3.18 X10'6 (4.20-5.60); RED CELL DISTRIBUTION WIDTH 31.5 % (11.5-14.5)
[2018-05-12 06:48] LABS: ALANINE AMINOTRANSFERASE 43 U/L (12-78); ALBUMIN 2.9 G/DL (3.4-5.0); ALBUMIN/GLOBULIN RATIO 0.6 (1.1-1.5); ALKALINE PHOSPHATASE 139 IU/L (46-116); ANION GAP 9 (8-16); ASPARTATE AMINO TRANSFERASE 43 U/L (10-37); BILIRUBIN,TOTAL 0.1 MG/DL (0.1-1.0); CALCIUM 9.3 MG/DL (8.5-10.1); CHLORIDE 101 MMOL/L (99-107); CREATININE 1.05 MG/DL (0.40-0.90); GLUCOSE 153 MG/DL (70-104); MAGNESIUM 1.8 MG/DL (1.5-2.4); PHOSPHORUS 3.2 MG/DL (2.3-4.5); POTASSIUM 4.4 MMOL/L (3.5-5.1); PREALBUMIN 23.9 MG/DL (19-36); SODIUM 136 MMOL/L (135-145); TOTAL CARBON DIOXIDE 26.3 MMOL/L (24-32); TOTAL PROTEIN 7.9 G/DL (6.4-8.2); eGFR 56 ML/MIN
[2018-05-12 06:55] LABS: ANISOCYTOSIS 3+; HYPOCHROMASIA 1+; PLATELET ESTIMATE NORMAL; POLYCHROMASIA 1+
[2018-05-12 07:04] LABS: BLOOD UREA NITROGEN 20 MG/DL (7-18)
[2018-05-12 07:33] VITALS: BP 134/87
[2018-05-12] MEDS: ceFAZolin 1GM/D5W- ADD-VANTAGE 50 ML IV SCH ×3 (08:00→23:47)
[2018-05-12] MEDS: LORazepam 1 MG tablet PO SCH ×3 (08:01→20:21)
[2018-05-12] MEDS: nystatin 500,000 unit/5ML UD oral suspension PO SCH ×3 (08:01→20:25)
[2018-05-12] MEDS: pantoprazole 40mg Tablet.DR PO SCH (08:01)
[2018-05-12] MEDS: venlafaxine XR 75mg capsule (Q24H) PO SCH (08:01)
[2018-05-12] MEDS: enoxaparin 40mg/0.4ml syringe SUBCUT SCH (08:01)
[2018-05-12] MEDS: oxybutynin 5mg tablet PO SCH ×2 (08:02→20:21)
[2018-05-12] MEDS: cetirizine 10mg tablet PO SCH (08:02)
[2018-05-12] MEDS: fluticasone nasal spray 16GM bottle NS SCH (08:02)
[2018-05-12] MEDS: insulin glargine (Lantus) pen - multi-dose SQ SCH ×2 (08:27→21:00)
[2018-05-12 11:24] VITALS: BP 137/98
[2018-05-12] MEDS: lactose-reduced food (Ensure High Protein) 237ml bottle PO SCH ×2 (13:00→18:38)
[2018-05-12 20:00] VITALS: BP 165/95
[2018-05-12] MEDS: mirtazapine 15mg tablet PO SCH (20:22)
[2018-05-12] MEDS: ROPINIRole 1mg tablet PO SCH (20:22)
[2018-05-12] MEDS: lurasidone 20mg tablet PO SCH (20:23)
[2018-05-13 00:43] VITALS: BP 137/87
[2018-05-13] MEDS: insulin regular, human vial - multi-dose SQ SCH ×3 (02:52→14:41)
[2018-05-13] MEDS: [UNRECOGNIZED DRUG - REMARK] IV SCH ×8 (04:00→18:47)
[2018-05-13 07:42] VITALS: BP 150/84
[2018-05-13] MEDS: lactose-reduced food (Ensure High Protein) 237ml bottle PO SCH ×3 (08:00→17:42)
[2018-05-13] MEDS: pantoprazole 40mg Tablet.DR PO SCH (09:08)
[2018-05-13] MEDS: venlafaxine XR 75mg capsule (Q24H) PO SCH (09:09)
[2018-05-13] MEDS: nystatin 500,000 unit/5ML UD oral suspension PO SCH ×3 (09:09→21:43)
[2018-05-13] MEDS: ceFAZolin 1GM/D5W- ADD-VANTAGE 50 ML IV SCH ×2 (09:09→16:32)
[2018-05-13] MEDS: oxybutynin 5mg tablet PO SCH ×2 (09:09→21:42)
[2018-05-13] MEDS: LORazepam 1 MG tablet PO SCH ×3 (09:09→21:42)
[2018-05-13] MEDS: cetirizine 10mg tablet PO SCH (09:09)
[2018-05-13] MEDS: enoxaparin 40mg/0.4ml syringe SUBCUT SCH (09:10)
[2018-05-13] MEDS: fluticasone nasal spray 16GM bottle NS SCH (09:10)
[2018-05-13] MEDS: insulin glargine (Lantus) pen - multi-dose SQ SCH (09:28)
[2018-05-13 11:58] VITALS: BP 139/88
[2018-05-13 20:00] VITALS: BP 163/91
[2018-05-13] MEDS: mirtazapine 15mg tablet PO SCH (21:42)
[2018-05-13] MEDS: ROPINIRole 1mg tablet PO SCH (21:43)
[2018-05-13] MEDS: lurasidone 20mg tablet PO SCH (21:43)
[2018-05-14] VITALS: BP 148/90
[2018-05-14] MEDS: ceFAZolin 1GM/D5W- ADD-VANTAGE 50 ML IV SCH ×2 (00:23→07:30)
[2018-05-14] MEDS: pantoprazole 40mg Tablet.DR PO SCH (07:29)
[2018-05-14] MEDS: fluticasone nasal spray 16GM bottle NS SCH (07:30)
[2018-05-14] MEDS: LORazepam 1 MG tablet PO SCH ×2 (07:30→13:10)
[2018-05-14] MEDS: oxybutynin 5mg tablet PO SCH (07:31)
[2018-05-14] MEDS: venlafaxine XR 75mg capsule (Q24H) PO SCH (07:32)
[2018-05-14] MEDS: cetirizine 10mg tablet PO SCH (07:32)
[2018-05-14] MEDS: insulin glargine (Lantus) pen - multi-dose SQ SCH (07:39)
[2018-05-14] MEDS: enoxaparin 40mg/0.4ml syringe SUBCUT SCH (07:40)
[2018-05-14] MEDS: nystatin 500,000 unit/5ML UD oral suspension PO SCH ×2 (07:47→13:10)
[2018-05-14 08:00] VITALS: BP 109/71
[2018-05-14] MEDS: lactose-reduced food (Ensure High Protein) 237ml bottle PO SCH ×2 (08:28→13:08)
[2018-05-14] MEDS ORDERED: LACT-228 PO (11:38)
[2018-05-14] MEDS ORDERED: CEPH500C5 PO ×2 (11:38→11:41)
[2018-05-14 11:47] VITALS: BP 118/88
== END 2018-05-14 15:06 | disposition home or self-care (01) | DRG 393 ==
LOC: ER 14:30 → ED HOLD 16:43 → SUR 3N 21:24
PROVIDERS: ADMIT Internal Medicine; ATTEND Internal Medicine
PROC: 02HV33Z Insertion of Infusion Device into Superior Vena Cava, Percutaneous Approach (ICD-10-PCS; principal; 2018-05-06)
PROC: B548ZZA Ultrasonography of Superior Vena Cava, Guidance (ICD-10-PCS; 2018-05-06)
DX: K94.22 Gastrostomy infection (principal); A41.9 Sepsis, unspecified organism; E43 Unspecified severe protein-calorie malnutrition; L03.311 Cellulitis of abdominal wall; N17.9 Acute kidney failure, unspecified; E87.6 Hypokalemia; D70.1 Agranulocytosis secondary to cancer chemotherapy; M79.5 Residual foreign body in soft tissue; C02.9 Malignant neoplasm of tongue, unspecified; E11.40 Type 2 diabetes mellitus with diabetic neuropathy, unspecified; F32.9 Major depressive disorder, single episode, unspecified; G89.29 Other chronic pain; M54.9 Dorsalgia, unspecified; B95.61 Methicillin susceptible Staphylococcus aureus infection as the cause of diseases classified elsewhere; Z79.899 Other long term (current) drug therapy; Z79.4 Long term (current) use of insulin; Z68.33 Body mass index [BMI] 33.0-33.9, adult
CPT/HCPCS: 36415; 36569; 71045; 74176; 76937; 80048; 80053; 80202; 81001; 82948; 83036; 83605; 83735; 84100; 84132; 84134; 84145; 84478; 85025; 85610; 85730; 87040; 87070; 87077; 87186; 92616; 93005; 99285; G0378; J0690; J1442; J1642; J1650; J1815; J1956; J2270; J2405; J2543; J3370; J7030; Q9967